=== PATIENT | male | born 1975 | race Caucasian/White ===

== ENCOUNTER 2022-11-09 11:05 | Emergency (ER) | payer MEDICARE, MEDICAID, SELFPAY ==
[2022-11-09 11:12] VITALS: BP 128/69; PULSE 62; RESP 18; TEMP 36.6; O2SAT 97
--- NOTE | 2022-11-09 11:56 | DI.RAD_ITS ---
Exam(s) XR KNEE LT 4V AP,LAT,LE,PAT EXAM: XR KNEE LT 4V AP,LAT,LE,PAT CLINICAL HISTORY: Fall, Knee pain. TECHNIQUE: 2D digital imaging was performed. Three views. COMPARISON: No exams were available for comparison FINDINGS: BONES: No acute fracture is present. No bony destructive lesion is seen. JOINTS: The knee is normally aligned. No joint effusion is seen. SOFT TISSUE: Normal. IMPRESSION: Normal radiographs of the left knee. DATA REPOSITORY: RADIATION DOSE DELIVERED:
--- NOTE | 2022-11-09 12:04 | W.ED.GENAD ---
Discharge Plan Disposition Patient Disposition: Home Discharge Details Clinical Impression: Left knee sprain Primary Care Provider: None,None ED Provider: Mercedes Kumar Home Meds and New Rx's Prescriptions: No Action hydroxyzine pamoate [Vistaril] 100 mg Capsule 150 mg PO DAILY escitalopram oxalate [Lexapro] 10 mg Tablet 30 mg PO DAILY buprenorphine HCl [Subutex] 8 mg Tablet, Sublingual 12 mg SUBLINGUAL DAILY Discharge Instructions Instructions: Knee Sprain (ED) Additional Instructions: X-rays show no fluid or evidence of bony abnormality. Please follow-up with orthopedics in 1 to 2 weeks as needed for continuing pain. Wear the brace as directed, RICE procedures at home rest ice compression elevation. Use the crutches toe-touch weightbearing advance as tolerated. Please take Tylenol or Ibuprofen with food every 4-6 hours as needed for pain and swelling. Follow up with primary care provider in 3-5 days. Return to ED sooner if any worsening or concerns. Increase oral fluids. Stand Alone Forms: Work Release Referrals: Dick Ross MD [ [facility] STAFF PHYSICIAN] - 1 week Medical Decision Making 47-year-old male presents to the ER with chief complaint of left knee pain status post a mechanical fall onto rocks yesterday afternoon while fishing. He reports increased pain with weightbearing. He does have a history of surgery 10 years ago to that knee for meniscus tear. He complains of posterior pain. No obvious deformity noted. X-ray left knee ordered. Within normal limits. We will give patient a splint and crutches and instructed follow-up with Ortho if needed. This text was generated using [employer] system, please disregard any oddities of phrase or misspellings. Imaging Data Radiologic Study: Imaging: X-Ray Radiologist's impression: EXAM: XR KNEE LT 4V AP,LAT,LE,PAT CLINICAL HISTORY: Fall, Knee pain. TECHNIQUE: 2D digital imaging was performed. Three views. COMPARISON: No exams were available for comparison FINDINGS: BONES: No acute fracture is present. No bony destructive lesion is seen. JOINTS: The knee is normally aligned. No joint effusion is seen. SOFT TISSUE: Normal. IMPRESSION: Normal radiographs of the left knee. HPI General Mode of arrival: ambulatory. Date/Time Provider Initiated Documentation: 11/09/22 11:18. Limitations to Documentation: no limitations. Information obtained by: patient, RN notes reviewed and old records reviewed. HPI Narrative: 47-year-old male presents to the ER with chief complaint of left knee pain status post a mechanical fall onto rocks yesterday afternoon while fishing. He reports increased pain with weightbearing. He does have a history of surgery 10 years ago to that knee for meniscus tear. He complains of posterior pain. No obvious deformity noted. Related Data Home Medications Medication Instructions Recorded Confirmed buprenorphine HCl 8 mg sublingual 12 mg sublingual DAILY 11/09/22 11/09/22 tablet escitalopram oxalate 10 mg tablet 30 mg PO DAILY 11/09/22 11/09/22 (Lexapro) hydroxyzine pamoate 100 mg capsule 150 mg PO DAILY 11/09/22 11/09/22 Allergies Allergy/AdvReac Type Severity Reaction Status Date / Time No Known Allergies Allergy Unverified 11/09/22 11:15 General Stated Complaint: Orthopedic KHADAR: 4 Review of Systems Musculoskeletal Musculoskeletal: Reports as per HPI and Reports arthralgias PFSH All Active Problems (Updated 11/09/22 @ 12:16 by Mercedes Kumar NP) Left knee sprain (Acute) Social History Smoking/Tobacco Use Status: Current every day Tobacco Type: cigarettes Smoking risk assessment performed?: Yes Alcohol Intake: current Alcohol Intake frequency: a few times a week Substance use type: marijuana Do you feel safe at home: Yes Do you feel safe in your relationship?: Yes Exam Extrem General: normal to inspection, full ROM and capillary refill normal Left lower extremity: knee Details: tenderness Location: of the popliteal fossa Course Vital Signs Vital signs: Vital Signs Temperature 36.6 C 11/09/22 11:12 Pulse 62 11/09/22 11:12 Respiratory Rate 18 11/09/22 11:12 Blood Pressure 128/69 11/09/22 11:12 Pulse Oximetry 97 11/09/22 11:12 Temperature 36.6 C 11/09/22 11:12 Temperature Source Temporal Artery Scan 11/09/22 11:12 Pulse 62 11/09/22 11:12 Respiratory Rate 18 11/09/22 11:12 Respiratory Effort Normal, Non-Labored 11/09/22 11:13 Blood Pressure 128/69 11/09/22 11:12 Pulse Oximetry 97 11/09/22 11:12 Oxygen Delivery Method Room Air 11/09/22 11:12 Oxygen Flow Rate 0 11/09/22 11:12 PAWSS Have you Been Recently Intoxicated or Drunk Within the Last 30 days?: No Have you Ever Experienced Previous Episodes of Alcohol Withdrawal?: No Have you ever Experienced Withdrawal Seizures?: No Have you ever Experienced Delirium Tremens(DT)s?: No Have you ever undergone Alcohol Rehabilitation Treatment (i.e, inpt ot outpatient treatment programs)?: No Have you ever Experienced Blackouts?: No Have you ever Combined Alcohol with other Downers within the last 90 days?: No Have you ever Combined Alcohol with any other Substance of Abuse during the last 90 days?: No Positive Blood Alcohol level on Presentation? [PCS.BAL]: No Evidence of Increased Autonomic Activity (i.e. HR>120, tremor, sweating, agitation, nausea)?: No Result: 0
[2022-11-09 12:33] VITALS: PULSE 75; RESP 18; O2SAT 98
== END 2022-11-09 12:35 | disposition home or self-care (01) ==
PROVIDERS: Emergency Provider Registered Nurse Emergency
DX: S83.92XA Sprain of unspecified site of left knee, initial encounter (principal); W19.XXXA Unspecified fall, initial encounter
CPT/HCPCS: 29505; 99282; 73564